=== PATIENT | male | born 1970 | race Hispanic/Latino ===

== ENCOUNTER 2017-06-19 01:02 | Emergency (ER) | payer OTHER ==
[~2017-06-19] VITALS: Ht 167.6 cm; Wt 127.0 kg
[2017-06-19] MEDS ORDERED: ACETAMINOPHEN-1 EAC1 PO (02:01)
== END 2017-06-19 02:10 | disposition home or self-care (01) ==
LOC: ED 01:02
DX: S20.212A Contusion of left front wall of thorax, initial encounter (principal); W01.0XXA Fall on same level from slipping, tripping and stumbling without subsequent striking against object, initial encounter
CPT/HCPCS: 71045; 99283